=== PATIENT | female | born 1970 | race Caucasian/White ===

== ENCOUNTER 2020-04-12 14:28 | Emergency (ER) | payer BC, OTHER ==
[~2020-04-12] VITALS: Ht 160 cm; Wt 76.2 kg
[~2020-04-12 14:28] MED LIST: ACYC-114 PO
[2020-04-12] MEDS ORDERED: DIAZEPAM 5 MG TABLET PO ONE (15:00)
[2020-04-12] MEDS ORDERED: KETOROLAC 30 MG/1 ML IM ONE (15:00)
--- NOTE | 2020-04-12 18:21 | NUR ---
TASK RN NOTE: PT AMBULATES WELL FROM LOBBY BACK TO ROOM. NAD NOTED AT THIS TIME. PT IS TEARFUL WHEN DISCUSSING INTERMITTENT RT SIDED PAIN, WHICH STARTED YESTERDAY AND HAS BEEN GRADUALLY WORSENING. PT DENIES TRAUMA AND MEDICAL HX. PT GIVEN GOWN AND INSTRUCTED TO CHANGE.
--- NOTE | 2020-04-12 18:22 | NUR ---
[employer]: PT TO ROOM FROM LOBBY
[2020-04-12] MEDS ORDERED: DIAZEPAM 5 MG TABLET ONE (18:27)
[2020-04-12] MEDS ORDERED: KETOROLAC 30 MG/1 ML ONE (18:28)
[2020-04-12 18:39] VITALS: BP 145/85
== END 2020-04-12 18:58 | disposition home or self-care (01) ==
LOC: ED 18:55
DX: S16.1XXA Strain of muscle, fascia and tendon at neck level, initial encounter (principal); M54.12 Radiculopathy, cervical region; M62.830 Muscle spasm of back; R94.31 Abnormal electrocardiogram [ECG] [EKG]; F17.200 Nicotine dependence, unspecified, uncomplicated; X58.XXXA Exposure to other specified factors, initial encounter; Y93.89 Activity, other specified; Y92.89 Other specified places as the place of occurrence of the external cause; Y99.8 Other external cause status
CPT/HCPCS: 72050; 93005; 96372; 99283; J1885